=== PATIENT | male | born 1965 | race Caucasian/White ===

== ENCOUNTER 2020-06-30 16:38 | Emergency (ER) | payer OTHER, SELFPAY ==
[2020-06-30 16:40] VITALS: BP 147/77; PULSE 94; RESP 15; TEMP 36.6; O2SAT 98; BMI 26.7
--- NOTE | 2020-06-30 16:54 | ED.DCSUM_ITS ---
- ER Visit Summary Date of Service: 06/30/20 Chief Complaint: Left lower thigh laceration versus chainsaw History of Present Illness: The patient is a 54 M prior history of neck cancer with radical dissection radiation and chemotherapy. Patient states that he was using a chainsaw to cut down a tree. And excellently lacerated the distal anterior aspect of his left thigh proximal to his knee. Denies any other injuries. This occurred in the last hour. He is unsure of his last tetanus shot and thinks it may have been around 10 years ago so to be updated. He denies any other injuries. He denies any pulsatile bleeding. He denies any weakness or numbness to his left foot. Physical Examination: Well-appearing middle-aged male. Vital signs stable afebrile. H EENT exam unremarkable. Lungs clear to auscultation bilaterally. Heart regular rhythm no murmur. Abdomen soft nontender normal bowel sounds no peritoneal signs. Patient moving all 4 extremities. Neurovascularly intact. Full range of motion normal motor strength sensation all extremities. Left distal thigh proximal to the knee has multiple parallel lacerations from a chainsaw. Involves the skin and subcu tissue. There is no involvement to the muscle no involvement to the knee joint. He has full flexion-extension of the left hip, left knee and left foot and ankle. Left foot and ankle neurovascular intact with normal dorsi plantarflexion and sensation. Normal 5-5 motor strength. The wound itself there is no active bleeding currently. No pulsatile bleeding. And it does not appear to be deep into the muscle or any joints or bone. There does not appear to be any significant neurovascular injury. Test Results: None Emergency Department Course and Treatment: Chainsaw laceration left anterior distal thigh. Area will be cleaned with Shur-Clens. Washed with saline. Explored. Locally anesthetized with lidocaine. Closed using 4-0 Ethilon simple interrupted sutures. Proper hemostasis wound closure obtained. Patient tolerat ed procedure well. Wound was about 7 cm in length and took 9 simple interrupted 4-0 Ethilon sutures. Laceration #2 was 5 cm in length and took 7 simple interrupted 4-0 Ethilon sutures and laceration 3 was 3 cm and took four 4-0 Ethilon sutures. Patient tolerated procedure well. All wounds were washed, explored and irrigated. Treatment Plan: Wound care. Watch for any signs of infection is seen return. Tylenol and/or Motrin for pain. Apply antibiotic ointment twice daily. Suture removal in 10 days. Disposition: Discharge Impression: Left lateral thigh lacerations secondary to a chainsaw injury Laceration #1 7 cm Laceration #2 5 cm Laceration #3 centimeters Tetanus updated This note was generated with [employer] dictation software. It may contain incorrect words, spelling, and punctuation that were not noted in review of the chart prior to signing ED Disposition - Plan for ED Patient: Disposition: Home or Assisted Living Instructions: ED Laceration: All Closures Referrals: [facility] Doctor,Out of [NON-STAFF] - 10 Day for suture removal Additional Instructions: Ice and elevate the area to decrease pain and swelling. Keep the wound clean and dry. You may shower just dried off very good carefully after showering. I would not sit in bath water. You can clean this daily with soap and water or peroxide and water. Apply antibiotic ointment twice daily. Have the stitches taken out in 10 days. Watch for any signs of infection such as redness, pus, fever or streaks. If seen return. Tylenol and Motrin for pain. Your tetanus was updated today and should be good for the next 10 years.
--- NOTE | 2020-06-30 16:57 | DCINST.ED_ITS ---
ED Disposition - Plan for ED Patient: Disposition: Home or Assisted Living Instructions: ED Laceration: All Closures Referrals: [facility] Doctor,Out of [Primary Care Provider] - 10 Day for suture removal Additional Instructions: Ice and elevate the area to decrease pain and swelling. Keep the wound clean and dry. You may shower just dried off very good carefully after showering. I would not sit in bath water. You can clean this daily with soap and water or peroxide and water. Apply antibiotic ointment twice daily. Have the stitches taken out in 10 days. Watch for any signs of infection such as redness, pus, fever or streaks. If seen return. Tylenol and Motrin for pain. Your tetanus was updated today and should be good for the next 10 years.
[2020-06-30] MEDS: Diphth,Pertuss(Acell),Tet Vac 0.5 ML Vial IM (16:58)
[2020-06-30] MEDS: Lidocaine 1% (20 ml mdv) 20 ML Vial INFILT (16:58)
== END 2020-06-30 18:16 | disposition home or self-care (01) ==
LOC: ED 17:11
PROVIDERS: Emergency Provider Emergency Medicine; PCP Registered Nurse
DX: S71.112A Laceration without foreign body, left thigh, initial encounter (principal); W29.3XXA Contact with powered garden and outdoor hand tools and machinery, initial encounter; Y92.9 Unspecified place or not applicable; Y99.9 Unspecified external cause status; Z23 Encounter for immunization
CPT/HCPCS: 12005; 90471; 90715; 99283

== ENCOUNTER 2023-08-31 12:09 | Emergency (ER) | payer OTHER, SELFPAY ==
[2023-08-31 12:11] VITALS: BP 140/94; PULSE 84; RESP 16; TEMP 36; O2SAT 98; BMI 27.1
--- NOTE | 2023-08-31 13:10 | EX.ED.DYSGE1 ---
HPI <ZEV Estevez - Last Filed: 08/31/23 13:19> History of Present Illness Chief Complaint: Head Injury Narrative Narrative: Patient is a 57-year-old male with no significant medical history presents to the emergency department after incident that occurred at work. Patient dates he was on a ladder approximately 5 foot up, he was trying to change a light that is attached to some change. A 2 x 4 that was leaning against something fell and hit him in the left scalp. Patient did have some bleeding. He then fell off the ladder and running into a car to his right shoulder. Patient denies any injury to his lower extremities. Denies any LOC. Patient talked to his boss and was able to drive himself here. Patient states other than a slight headache, he feels some pain to his shoulder blade however he feels generally okay. He denies any other injury. Unknown last tetanus vaccination. [facility] <ZEV Estevez - Last Filed: 08/31/23 13:19> [facility] Medical History (Updated 08/31/23 @ 13:35 by Aleisha Payne) Cancer of neck Home Medications fentanyl 25 mcg/hr transdermal patch 25 mcg TRANSDERM. Q72H 04/24/15 [History Last Taken Unknown] hydrocodone 7.5 mg-acetaminophen 325 mg/15 mL oral solution 15 ml PO Q4H PRN PRN Pain 04/24/15 [History Last Taken Unknown] lansoprazole 30 mg capsule,delayed release (Prevacid) 30 mg PO DAILY 04/24/15 [History Last Taken Unknown] lidocaine HCl 2 % mucosal solution (Lidocaine Viscous) 5 ml 04/24/15 [History Last Taken Unknown] lorazepam 0.5 mg tablet 0.5 mg PO TID PRN PRN Anxiety 04/24/15 [History Last Taken Unknown] ondansetron 8 mg disintegrating tablet (Zofran ODT) 8 mg PO Q8H PRN PRN Pain 04/24/15 [History Last Taken Unknown] Allergy/AdvReac Type Severity Reaction Status Date / Time Penicillins Allergy Unknown Verified 06/30/20 16:39 Social History Smoking Status: Never smoker ROS <ZEV Estevez - Last Filed: 08/31/23 13:19> ROS ED ROS Narrative Constitutional: Negative for fever, chills, weight loss, weakness Eyes: Negative for vision loss, vision change, double vision ENT: Negative for any sore throat, ear pain, congestion Cardiovascular: Negative for any chest pain, tightness, palpitations Respiratory: Negative for any cough, sputum production, hemoptysis, dyspnea, dyspnea on exertion, orthopnea Gastrointestinal: Negative for any abdominal pain, nausea, vomiting, diarrhea, constipation, blood in stool, blood in vomit : Negative for any urinary frequency, dysuria, retention, blood in urine Muscle skeletal: Negative for any neck pain, back pain. Positive for right shoulder pain Neurological: Negative for any syncope, dizziness. Positive for headache, left scalp laceration Skin: Negative for any rashes, itching, abrasions, lacerations Psychiatric: Negative for any depression, anxiety, stress, suicidal ideation, homicidal ideation Hematologic: Negative for any excessive bruising, easy bleeding EXAM <ZEV Estevez - Last Filed: 08/31/23 13:19> Physical Exam Narrative Exam Narrative: Vital signs reviewed. Patient alert orient x 4 no distress. HEET: Head normocephalic atraumatic, TMs clear bilaterally. Posterior pharynx is clear, moist mucous membranes. Nares clear bilaterally. Pupils are equal round reactive to light, negative for any hemotympanum, negative for any septal hematoma. Patient does have an abrasion to the anterior left scalp, this is superficial, I do not believe that it needs isabella. Neck: Supple with no lymphadenopathy or tenderness. No signs of meningismus. Cardiac: Regular rate and rhythm no murmurs gallops or rubs, equal peripheral pulses bilaterally. Respiratory: Lungs clear to auscultation bilaterally. No chest tenderness. Abdomen: Soft, nontender, nondistended. No abdominal bruit or pulsatile masses. No hepatosplenomegaly Extremities: No peripheral edema, no signs of gross trauma or deformity. Active full range of motion of all extremities. Full range of motion, no ecchymosis, no crepitus, patient patient has minimal pain. Neuro: Cranial nerves II through XII intact, no focal neurological deficits. Skin: Clean dry and intact with no rash, purpura, petechiae, vesicles or pustules. Backs/flank: No CVA tenderness, no midline spinal tenderness, no deformity. Psych: Normal mood and affect. No SI, HI or acute psychosis. Const Vital Signs: 08/31/23 12:11 Temperature 96.8 F L Temperature Source Temporal Pulse Rate 84 Respiratory Rate 16 Blood Pressure 140/94 H Blood Pressure Mean 109 Pulse Ox 98 Oxygen Delivery Method Room Air Positive well nourished and well developed General Appearance ED: well developed <Dr. Osvaldo Velázquez, - Last Filed: 08/31/23 13:36> Physical Exam Const Vital Signs: 08/31/23 12:11 Temperature 96.8 F L Temperature Source Temporal Pulse Rate 84 Respiratory Rate 16 Blood Pressure 140/94 H Blood Pressure Mean 109 Pulse Ox 98 Oxygen Delivery Method Room Air MDM <Tre Sterling [facility] - Last Filed: 08/31/23 13:19> [facility] Treatment and Re-Evaluation :: Patient appears to be in no obvious respiratory distress, vital signs are stable, patient appears nontoxic. Presenting to the emergency department to sustain a head injury, falling off a ladder injuring his right shoulder at approximate 11:30 PM. Patient's physical examination was unremarkable, there is no red flag signs. Patient's laceration is superficial, I do not believe it requires any sutures. Patient was updated with his tetanus vaccination today. He will follow-up outpatient. He is instructed to return for any worsening symptoms. Patient has full range of motion of the right shoulder, we have any x-rays are indicated. All proper paperwork was filled out. He was given concussion education, he will return for any worsening symptoms. All questions answered, stable for discharge. <Dr. Osvaldo Velázquez, DO - Last Filed: 08/31/23 13:36> [facility] Narrative Medical decision making narrative: Patient appears to be in no obvious respiratory distress, vital signs are stable, patient appears nontoxic. Presenting to the emergency department to sustain a head injury, falling off a ladder injuring his right shoulder at approximate 11:30 PM. Patient's physical examination was unremarkable, there is no red flag signs. Patient's laceration is superficial, I do not believe it requires any sutures. Patient was updated with his tetanus vaccination today. He will follow-up outpatient. He is instructed to return for any worsening symptoms. Patient has full range of motion of the right shoulder, we have any x-rays are indicated. All proper paperwork was filled out. He was given concussion education, he will return for any worsening all questions answered, stable for discharge. This patient was seen with a PA/[facility] Individually assessed they patient including history and physical. I have reviewed everything on the chart that is available and agree with the documentation provided by the PA/[facility] including discussion about the assessment, treatment plan, discussion, and return precautions. Patient presenting with scalp laceration. This is superficial and is not bleeding anymore and is well-approximated I do not believe any sutures. On examination he has no focal neurologic deficits or lateralizing signs or symptoms. He has minimal pain in his head/scalp and does not have any significant neck pain or shoulder pain. I do believe we need any images. I have low suspicion for concussion. He was given discharge instructions and return precautions. Discharge Plan Triage Chief Complaint: Head Injury ED Midlevel Provider: Tre Sterling ED Provider: Osvaldo Velázquez Dx/Rx/DC Orders Clinical Impression: Abrasion of scalp, Head injury, Contusion of right shoulder Instructions: After a Concussion, Bruises (Contusions), ED Abrasion Prescriptions: No Action ondansetron [Zofran ODT] 8 MG tablet,disintegrating 8 mg PO Q8H PRN PRN (Reason: Pain) lorazepam 0.5 MG tablet 0.5 mg PO TID PRN PRN (Reason: Anxiety) lidocaine HCl [Lidocaine Viscous] 15 ML solution 5 ml fentanyl 25 MCG patch 25 mcg TRANSDERM. Q72H lansoprazole [Prevacid] 30 MG capsule 30 mg PO DAILY hydrocodone-acetaminophen 15 ML solution 15 ml PO Q4H PRN PRN (Reason: Pain) Primary Care Provider: Kayleigh Quesdaa NP Referrals: [facility] [Non-Staff] - Kayleigh Quesada NP, [facility] [Primary Care Provider] - Activity Restrictions/Additional Instructions: Please keep the area clean and dry. Return for any worsening symptoms. Follow-up with the [facility] clinic. Disposition Disposition: Home, Self Care
[2023-08-31] MEDS: Ibuprofen 600 MG Tablet PO (13:26)
== END 2023-08-31 13:40 | disposition home or self-care (01) ==
LOC: ED 13:35
PROVIDERS: Emergency Provider Student in an Organized Health Care Education/Training Program; PCP Registered Nurse; Visit Provider Student in an Organized Health Care Education/Training Program
DX: S40.011A Contusion of right shoulder, initial encounter (principal); W11.XXXA Fall on and from ladder, initial encounter; S00.01XA Abrasion of scalp, initial encounter; Y93.89 Activity, other specified; Y99.0 Civilian activity done for income or pay; Y92.89 Other specified places as the place of occurrence of the external cause; W22.8XXA Striking against or struck by other objects, initial encounter; Z85.89 Personal history of malignant neoplasm of other organs and systems; Z23 Encounter for immunization
CPT/HCPCS: 90715; 99282